=== PATIENT | male | born 1965 | race Caucasian/White ===

== ENCOUNTER 2017-05-27 11:02 | Emergency (ER) | payer SELFPAY ==
--- NOTE | 2017-05-27 12:02 | RAD ---
INDICATION: Left humerus injury. TECHNIQUE: 2 views of the left humerus were obtained. FINDINGS: There is an oblique fracture of the mid diaphysis of the humerus. The distal fragment is displaced one shaft diameter medial relative to the proximal fragment. There is also medial angulation of the distal fragment relative to the proximal fragment. IMPRESSION: OBLIQUE, DISPLACED AND ANGULATED FRACTURE OF THE MID DIAPHYSIS OF THE HUMERUS.
[2017-05-27] MEDS ORDERED: HYDROcodone/ACETAMIN 5-325 MG* 1 TAB PO ONE (12:31)
--- NOTE | 2017-05-27 13:43 | ED ---
Upper Extremity Pain - HPI Summary HPI Summary: Patient presents to the ED after falling on ice 2 hours ago and endorses left upper arm pain and deformity. He denies numbness or tingling. Denies color or temperature changes to the arm or the fingers. Neurovascularly intact. He endorses 5 out of 10 pain over the lateral upper extremity. He has never injured that arm before. Denies any shoulder or elbow pain. Denies lower arm pain including wrist and fingers. He has otherwise healthy, has not blood thinners and has not taken any medication for relief. He has not used ice for relief. - History of Current Complaint Chief Complaint: EDExtremityUpper Stated Complaint: POSSIBLE LT BROKEN ARM Time Seen by Provider: 05/27/17 11:21 Hx Obtained From: Patient Mechanism Of Injury: Direct Blow Onset/Duration: Started Hours Ago Timing: Constant Severity Initially: Moderate Severity Currently: Moderate Pain Location: Arm Character: Aching Aggravating Factor(s): Movement, Lifting, Extension Alleviating Factor(s): Rest Associated Signs & Symptoms: Negative: Swelling, Redness, Bruising, Weakness, Numbness/Tingling Related History: Dominant Hand Right - Risk Factors Non-Orthopedic Risk Factor: Negative DVT Risk Factors: Negative Septic Arthritis Risk Factor: Negative Compartment Syndrome Risk Factors: Pain - Allergies/Home Medications Allergies/Adverse Reactions: Allergies Allergy/AdvReac Type Severity Reaction Status Date / Time No Known Allergies Allergy Verified 12/02/14 16:38 PMH/Surg Hx/FS Hx/Imm Hx Previously Healthy: Yes - Immunization History Hx Pertussis Vaccination: No Immunizations Up to Date: Yes Infectious Disease History: No Infectious Disease History: Denies: Traveled Outside the [place] in Last 30 Days - Social History Occupation: Employed Full-time Lives: With Family Alcohol Use: Occasionally Hx Substance Use: No Substance Use Type: Reports: None Hx Tobacco Use: No Smoking Status (MU): Never Smoked Tobacco Review of Systems Constitutional: Negative Negative: Fever, Chills, Fatigue Eyes: Negative Cardiovascular: Negative Respiratory: Negative Positive: no symptoms reported, see HPI Positive: Arthralgia, Myalgia Skin: Negative Neurological: Negative All Other Systems Reviewed And Are Negative: Yes Physical Exam Triage Information Reviewed: Yes Vital Signs On Initial Exam: Initial Vitals Temp Pulse Resp BP Pulse Ox 97.8 F 74 18 154/79 95 05/27/17 11:10 05/27/17 11:10 05/27/17 11:10 05/27/17 11:10 05/27/17 11:10 Vital Signs Reviewed: Yes Appearance: Positive: Well-Appearing, Well-Nourished Skin: Positive: Warm, Skin Color Reflects Adequate Perfusion Head/Face: Positive: Normal Head/Face Inspection Eyes: Positive: EOMI, AJIT, Conjunctiva Clear Respiratory/Lung Sounds: Positive: Clear to Auscultation, Breath Sounds Present Cardiovascular: Positive: RRR, Pulses are Symmetrical in both Upper and Lower Extremities Musculoskeletal: Positive: Pain @ - Left humerus Neurological: Positive: Speech Normal Psychiatric: Positive: Normal, Affect/Mood Appropriate Diagnostics - Vital Signs Vital Signs Temp Pulse Resp BP Pulse Ox 05/27/17 11:10 97.8 F 74 18 154/79 95 - Laboratory Lab Statement: Any lab studies that have been ordered have been reviewed, and results considered in the medical decision making process. Course/Dx - Course Course Of Treatment: During the course of treatment, x-ray obtained which shows : IMPRESSION: OBLIQUE, DISPLACED AND ANGULATED FRACTURE OF THE MID DIAPHYSIS OF THE. HUMERUS. Dr. Albarran was called for consult. He suggests proximal sugar tong splint. Plaster used for splint. Patient tolerated well. Radial nerve intact. Sling given. The sling was cut to provide more traction due to oblique and angulated fx. Oxycodone for pain control. He will follow-up with Dr. Albarran next week. - Diagnoses Provider Diagnoses: Oblique fracture of shaft of humerus Discharge - Discharge Plan Condition: Stable Disposition: HOME Prescriptions: oxyCODONE/Acetamin 10/325(NF) [Percocet 10/325 (NF)] 1 tab PO Q6H #20 tab MDD 4 Patient Education Materials: Arm Fracture in Adults (ED) Referrals: Harsh Albarran MD [Medical Doctor] - Sami rAteaga MD [Primary Care Provider] - Additional Instructions: Please follow-up with Dr. Albarran Call today for an appointment for next week Continue with the sling at all times Do not get the splint wet Oxycodone ( pain medication) up to every 6 hours as needed for pain control Ibuprofen 600 mg 3 times daily
[2017-05-27 13:44] VITALS: BP 126/77
== END 2017-05-27 13:52 | disposition home or self-care (01) ==
LOC: ED 11:02
DX: S42.332A Displaced oblique fracture of shaft of humerus, left arm, initial encounter for closed fracture (principal); W00.0XXA Fall on same level due to ice and snow, initial encounter; Y92.9 Unspecified place or not applicable
CPT/HCPCS: 99282